=== PATIENT | male | born 2005 | race Caucasian/White ===

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

== ENCOUNTER 2023-01-27 09:41 | Emergency (ER) | payer OTHER, MEDICAID, SELFPAY ==
[2023-01-27 09:57] VITALS: BP 129/81; PULSE 78; RESP 18; TEMP 36.8; O2SAT 98; BMI 21.2
[2023-01-27 10:37] VITALS: BP 145/79; PULSE 61; RESP 16; O2SAT 98
--- NOTE | 2023-01-27 11:05 | ECG_ITS ---
[facility] Test Date: 2023-01-27 Pat Name: Janes Chaudhari Department: Room: Gender: Male [employer]: : 2005 Requested By: Caitlin Jamison Order Number: [id number] Lira MD: Sue Castillo M.D. Measurements Intervals [place] Rate: 58 P: 42 NM: 154 QRS: 32 QRSD: 90 T: 48 QT: 385 QTc: 380 Interpretive Statements SINUS BRADYCARDIA WITH SINUS ARRHYTHMIA No previous ECG available for comparison Electronically Signed On 01-28-2023 6:59:32 CDT by Sue Castillo M.D. [email or web address]
--- NOTE | 2023-01-27 11:06 | CTR_ITS ---
PROCEDURE INFORMATION: Exam: CT Head Without Contrast Exam date and time: 01/27/2023 11:51 AM Age: 17 years old Clinical indication: Syncope and collapse; Additional info: Trauma TECHNIQUE: Imaging protocol: Computed tomography of the head without contrast. Radiation optimization: All CT scans at this facility use at least one of these dose optimization techniques: automated exposure control; mA and/or kV adjustment per patient size (includes targeted exams where dose is matched to clinical indication); or iterative reconstruction. REPORTING DATA: Count of CT and Cardiac NM exams in prior 12 months: This patient has received [address] and 0 known cardiac nuclear medicine studies in the 12 months prior to the current study. COMPARISON: CT head wo con* [id number] 01/14/2020 3:13 PM RADIATION DOSE METRICS: Total DLP (mGy-cm): 1091.68 FINDINGS: Brain: Normal. No hemorrhage. No mass effect or midline shift. Cortical sulci and white matter are unremarkable for age. Cerebral ventricles: Unremarkable for age. Paranasal sinuses: Visualized sinuses are unremarkable. No fluid levels. Mastoid air cells: There is partial obliterat Bones/joints: Unremarkable. No acute fracture. Soft tissues: Unremarkable. CT/CT head wo con* [id number] IMPRESSION: No acute intracranial abnormality.
--- NOTE | 2023-01-27 11:08 | W.ED.SYNCOPE ---
HPI - Syncope General: Chief Complaint: Syncope Stated Complaint: head injury Time Seen by Provider: 01/27/23 09:45 Source: patient Mode of arrival: ambulatory Limitations: no limitations History of Present Illness: Patient is a 17-year-old male who presents to the emergency department complaining of syncope and hematemesis. In regards to his bloody emesis, he states this has intermittently been present since he was a kid . He was seen in our ED in November for a similar complaint of nausea/bloody vomiting and had a negative abdominal CT and labs. As recent as last week, he had an upper endoscopy by Dr. Jenkins that was reportedly unremarkable for any explanations to his reported GI bleeding. Gastric biopsy performed. Reportedly also has further testing scheduled. He states over the past three months he has had syncopal episodes during episodes of vomiting. Never had a syncopal episode while he wasn't vomiting or during exertion. Today during vomiting/syncopal episode he fell and hit his forehead and had little recollection of getting to work this morning and had some blurring of his vision. He denies any significant past medical history. Patient denies abdominal pain. Denies black/tarry stools. He takes Zofran at home for his nausea as well as Pantoprazole. He has never had an EKG or other cardiac work-up. He denies any recreational drug use or alcohol use. He also states he currently has a headache due to hitting his head from the fall. MD complaint: loss of consciousness Onset (ago): hour(s) -: second(s) Prodromal symptoms: nausea/vomiting Witnessed: No Injuries sustained associated with event: head Associated symptoms: Reports headache(s) and nausea; Deny abdominal pain (Mild right upper quadrant), chest pain, fever(s) or lightheadedness Treatments prior to arrival: none Review of Systems Const: Denies: fever(s), chills, body aches, fatigue or malaise Eyes: Denies: change in vision, blurry vision, photophobia, floaters or seeing flashes ENMT: Denies: throat pain or odynophagia Card: Reports: syncope; Denies: chest pain, palpitations, irregular heart rhythm, lightheadedness or dyspnea on exertion Resp: Denies: dyspnea, productive cough or pain on inspiration GI: Reports: nausea, vomiting and hematemesis; Denies: abdominal pain (Mild right upper quadrant), heartburn, diarrhea, constipation, change in bowel habits, hematochezia or melena : Denies: difficulty urinating or dysuria Musc: Denies: neck pain, back pain or joint pain Skin/Breast: Denies: rash Neuro: Reports: headache(s); Denies: dizziness PFSH ED PFSH: Medical History No pertinent family history Surgical History No pertinent past surgical history Physical Exam Const: COMMON NORMALS: no acute distress, average body habitus, patient oriented x3, no limitations, healthy appearing, alert and well nourished GENERAL APPEARANCE: cooperative and comfortable ORIENTATION/CONSCIOUSNESS: Yes awake, Yes oriented to person, Yes oriented to place and Yes oriented to time HENMT: COMMON NORMALS: normocephalic and atraumatic HEAD & SCALP: normal to inspection, normocephalic, atraumatic and other (Small abrasion noted to the forehead); no Mascorro's sign, no laceration and no raccoon eyes Eye: COMMON NORMALS: Equal, round and reactive pupils present, EOMs intact bilaterally, conjunctivae normal, no scleral icterus, no papilledema and normal visual metzger by confrontation CONJUNCTIVA: Yes conjunctivae normal PUPIL: Yes Equal, round and reactive pupils present DIRECT OPHTHALMOSCOPY: Yes no papilledema Neck/C-Spine: COMMON NORMALS: full ROM, no lymphadenopathy, supple and no meningeal signs Chest: COMMONS NORMALS: normal inspection of the chest Resp: COMMON NORMALS: normal respiratory effort and clear to auscultation bilaterally AUSCULTATION: clear to auscultation bilaterally Cardio: COMMON NORMALS: regular rate, regular rhythm, No gallops present (Cardio), No clicks present (Cardio), No murmurs present (Cardio) and No rub (Cardio) RATE: regular rate RHYTHM: regular rhythm GI: COMMON NORMALS: Normal to inspection, nondistended, normoactive bowel sounds present, Soft to palpation, No hepatosplenomegaly present and no masses PALPATION: Yes Soft to palpation, No Tenderness to palpation present (GI), No Guarding due to palpation present (GI), No Rigid due to palpation and Yes No hepatosplenomegaly present : COMMON NORMALS: Yes no CVA tenderness BLADDER/KIDNEY EXAM: Yes no CVA tenderness Back/Pelvis: COMMON NORMALS: no CVA tenderness and thoracic and lumbar spine normal to inspection Extremity: COMMON NORMALS: normal to inspection, full ROM and capillary refill normal GENERAL: Yes normal exam except as noted Neuro: MAE COMA SCALE: document GCS findings [place] coma scale eye opening: Spontaneous [place] coma scale verbal response: Orientated [place] coma scale motor response: Obey commands [place] coma scale total score: 15 COMMON NORMALS: patient oriented x3, CN's II-XII intact bilaterally, moves all extremities, no focal motor deficits and no sensory deficits noted SENSORIUM/ORIENTATION: Yes alert, Yes oriented to person, Yes oriented to place and Yes oriented to time MENINGEAL SIGNS: Yes no meningeal signs SPEECH: speech normal GAIT: Yes Normal gait present MOTOR EXAM: 5/5 motor strength present throughout Skin: COMMON NORMALS: no rashes or lesions noted GENERAL SKIN EXAM: no rashes or lesions noted Course Vital Signs: Vital signs: Vital Signs Temperature 98.2 F 01/27/23 09:57 Pulse Rate 67 01/27/23 11:30 Respiratory Rate 18 01/27/23 11:30 Blood Pressure 126/83 01/27/23 11:30 Pulse Oximetry 100 01/27/23 11:30 Oxygen Delivery Me thod Room Air 01/27/23 11:30 MDM - Syncope Medical Decision Making This patient was seen and evaluated in the emergency department today for chronic hematemesis (years) and syncope while vomiting x 3 months. He notes that his syncopal episodes are associated with episodes of repetitive hematemesis, which was the case this morning. He comments that he has dealt with this since he was a child, and no one has found out what is wrong or what is causing his GI bleeding. His vitals throughout his stay have been within normal limits. An EKG performed showed no signs of abnormalities. Head CT is negative. His labs are also within normal limits, including no signs of acute blood loss anemia. He has had zero episodes of emesis while in the emergency department, though has complained of nausea for which he is given Zofran. I do not have any concern for cardiogenic or neurologic etiologies in regards to his syncope. He had a reportedly negative EGD [address] Jenkins. I feel that he can follow-up with primary care provider to continue work-up, which he agrees with at this time. Lab Data 01/27/23 11:18 01/27/23 11:[address] 01/27/23 11:06 IMPRESSION: No acute intracranial abnormality. Laboratory Results WBC 5.6 10^3/uL (4.5-13.0) 01/27/23 11:18 RBC 5.46 10^6/uL (4.1-5.3) H 01/27/23 11:18 Hgb 14.8 g/dL (11.7-16.6) 01/27/23 11:18 Hct 44.8 % (42.0-52.0) 01/27/23 11:18 MCV 82.1 fl (80-94) 01/27/23 11:18 MCH 27.1 pg (28.0-34.0) L 01/27/23 11:18 MCHC 33.0 g/dL (30.0-36.0) 01/27/23 11:18 RDW 12.5 % (12.1-15.1) 01/27/23 11:18 Plt Count 245 10^3/cmm (130-400) 01/27/23 11:18 MPV 9.4 fL (7.4-10.4) 01/27/23 11:18 Neut % (Auto) 52.2 % 01/27/23 11:18 Lymph % (Auto) 38.7 % 01/27/23 11:18 [place] % (Auto) 7.3 % 01/27/23 11:18 Eos % (Auto) 0.9 % 01/27/23 11:18 Baso % (Auto) 0.5 % 01/27/23 11:18 Neut # (Auto) 2.93 10^3/uL (1.8-8.0) 01/27/23 11:18 Lymph # (Auto) 2.2 10^3/uL (1.5-6.5) 01/27/23 11:18 [place] # (Auto) 0.4 10^3/uL (0.2-0.9) 01/27/23 11:18 Eos # (Auto) 0.1 10^3/uL (0.0-0.8) 01/27/23 11:18 Baso # (Auto) 0.0 10^3/uL (0.0-0.1) 01/27/23 11:18 Nucleated RBC % (auto) 0 % 01/27/23 11:18 Nucleated RBCs # 0.0 /100WBC 01/27/23 11:18 Sodium 139 mmol/L (136-145) 01/27/23 11:18 Potassium 3.8 mmol/L (3.5-5.1) 01/27/23 11:18 Chloride 104 mmol/L (98-107) 01/27/23 11:18 Carbon Dioxide 25 mmol/L (22-29) 01/27/23 11:18 Anion Gap 13.8 (5-19) 01/27/23 11:18 BUN 9 mg/dL (6-20) 01/27/23 11:18 Creatinine 0.7 mg/dL (0.7-1.2) 01/27/23 11:18 GFR Calculation 145.3 mL/min (90-130) H 01/27/23 11:18 Glucose 75 mg/dL (65-115) 01/27/23 11:18 Calculated Osmolality 285 mOsm/kg (285-295) 01/27/23 11:18 Calcium 9.1 mg/dL (8.5-10.5) 01/27/23 11:18 Total Bilirubin 0.5 mg/dL (0.15-1.2) 01/27/23 11:18 AST 16 U/L (0-40) 01/27/23 11:18 ALT 15 U/L (0-41) 01/27/23 11:18 Alkaline Phosphatase 85 U/L (40-130) 01/27/23 11:18 Total Protein 7.4 g/dL (6.6-8.7) 01/27/23 11:18 Albumin 4.6 g/dL (3.5-5.2) 01/27/23 11:18 Globulin 2.8 g/dL (1.3-4.6) 01/27/23 11:18 Lipase 28 U/L (13-60) 01/27/23 11:18 Urine Color Yellow (Yellow) 01/27/23 11:24 Urine Appearance Clear (CLEAR) 01/27/23 11:24 Urine pH 6 (5-7) 01/27/23 11:24 Ur Specific [place] 1.020 (1.005-1.030) 01/27/23 11:24 Urine Protein Neg (Negative) 01/27/23 11:24 Urine Glucose (UA) Norm (Normal) 01/27/23 11:24 Urine Ketones Negative (Negative) 01/27/23 11:24 Urine Blood Neg (Negative) 01/27/23 11:24 Urine Nitrate Negative (Negative) 01/27/23 11:24 Urine Bilirubin Neg (Negative) 01/27/23 11:24 Urine Urobilinogen Norm mg/dL (Negative) 01/27/23 11:24 Ur Leukocyte Esterase Negative (Negative) 01/27/23 11:24 EKG Data EKG 1: EKG interpretation date: 01/27/23 EKG interpretation time: 11:15 Prior EKG tracings: available for review Interpretation: 1115: Sinus bradycardia. Rate 58. Normal axis. Normal intervals. No acute St segment changes. Baseline artifact. No previous for comparison. Discharge Plan Discharge Patient Disposition: Home Clinical Impression: Vasovagal syncope, Hematemesis of unknown etiology Condition: Stable Prescriptions: No Action pantoprazole 40 mg tablet,delayed release (DR/EC) 40 mg PO BID ondansetron 4 mg tablet,disintegrating 4 mg PO Q8H PRN (Reason: nausea and vomiting) Qty: 20 0RF Discharge Orders: Discharge ED (Routine); Ordered 01/27/23 Ordered By: Caitlin Jamison Referrals: Jackelyn Bah FNP [Primary Care Provider] - Activity Restrictions/Additional Instructions: Continue current plan with your primary care provider and Dr. Jenkins for further evaluation of your symptoms. You may return to the emergency department for severe abdominal pain, worsening vomiting, lightheadedness/dizziness/passing out episodes even when you are not vomiting, chest pain, generally feeling worse or unwell, or any other concerns you may have. Stand Alone Forms: Work/School Release Coding Level of Care Code ED Judicial Administrative Assistant for Faith Flores
[2023-01-27 11:25] LABS: Add Urine Microscopic? NO; Charge for UA Resulting for Rev
[2023-01-27 11:27] VITALS: BP 126/83; BP 129/78; BP 134/74; PULSE 53; PULSE 62; PULSE 67
[2023-01-27 11:28] LABS: Bilirubin Urine Neg (Negative); Blood Urine Neg (Negative); Glucose Urine UA Norm (Normal); Ketones Urine Negative (Negative); Leukocyte Esterase Urine Negative (Negative); Nitrate Urine Negative (Negative); Protein Urine Neg (Negative); Urine Appearance Clear (CLEAR); Urine Color Yellow (Yellow); Urobilinogen Urine Norm (Negative); pH Urine 6 (5-7)
[2023-01-27 11:29] LABS: Basophils % 0.5 %; Eosinophils # 0.1 10^3/uL (0.0-0.8); Eosinophils % 0.9 %; Hematocrit 44.8 % (42.0-52.0); Hemoglobin 14.8 g/dL (11.7-16.6); Lymphocytes # 2.2 10^3/uL (1.5-6.5); Lymphocytes % 38.7 %; Mean Corpuscular Hemoglobin 27.1 pg (28.0-34.0); Mean Corpuscular Volume 82.1 fl (80-94); Mean Platelet Volume 9.4 fL (7.4-10.4); Monocytes # 0.4 10^3/uL (0.2-0.9); Monocytes % 7.3 %; Neutrophils # 2.93 10^3/uL (1.8-8.0); Neutrophils % 52.2 %; Nucleated Red Blood Cells % 0 %; Platelet Count 245 10^3/cmm (130-400); Red Blood Count 5.46 10^6/uL (4.1-5.3); Red Cell Distribution Width 12.5 % (12.1-15.1); White Blood Count 5.6 10^3/uL (4.5-13.0)
[2023-01-27 11:30] VITALS: BP 126/83; PULSE 67; RESP 18; O2SAT 100
[2023-01-27] MEDS: ondansetron 2 mg/ML SDV 2 mL 4 MG IVP (11:30)
[2023-01-27] MEDS: sodium chloride 0.9% 1,000 ML 999 ML IV (11:31)
[2023-01-27 11:46] LABS: Alanine Aminotransferase 15 U/L (0-41); Albumin Level 4.6 g/dL (3.5-5.2); Alkaline Phosphatase 85 U/L (40-130); Anion Gap 13.8 (5-19); Aspartate Amino Transferase 16 U/L (0-40); Blood Urea Nitrogen 9 mg/dL (6-20); Calcium 9.1 mg/dL (8.5-10.5); Carbon Dioxide 25 mmol/L (22-29); Chloride 104 mmol/L (98-107); Globulin 2.8 g/dL (1.3-4.6); Glomerular Filtration Rate 145.3 mL/min (90-130); Glucose 75 mg/dL (65-115); Lipase 28 U/L (13-60); Osmolality Calculated 285 mOsm/kg (285-295); Potassium 3.8 mmol/L (3.5-5.1); Sodium 139 mmol/L (136-145); Total Bilirubin 0.5 mg/dL (0.15-1.2); Total Protein 7.4 g/dL (6.6-8.7)
== END 2023-01-27 13:06 | disposition home or self-care (01) ==
PROVIDERS: Emergency Provider Physician Assistant; PCP Nurse Practitioner Family
DX: R55 Syncope and collapse (principal); K92.0 Hematemesis
CPT/HCPCS: 36415; 70450; 80053; 81003; 83690; 85025; 93005; 96374; 99285; J2405; J7030

== ENCOUNTER 2023-02-07 10:38 | Outpatient (CLI) | payer OTHER, MEDICAID, SELFPAY ==
--- NOTE | 2023-02-07 10:48 | FL_ITS ---
WS: [id number] Exam: [place] upper GI series [id number] Date/Time of Exam: 02/07/2023 11:06 AM Reason For Exam: GERD ESOPHAGITIS Deglutition was normal. The esophagus is smooth in contour. No esophageal stricture or mass. No hiata l hernia or gastroesophageal reflux. There is prominent gastric mucosa suggesting gastritis. No sign of gastric mass or ulceration. There was pylorospasm and delayed gastric emptying. The duodenal bulb is smooth in contour. No duodenal ulcer was noted. Barium spills freely into the proximal small bowel . IMPRESSION: 1. Findings suggest gastritis with some pylorospasm and delayed gastric emptying. 2. No indication of gastric or duodenal ulcer. No reflux identified during fluoroscopy.
== END 2023-02-07 10:39 | disposition home or self-care (01) ==
LOC: RAD 10:44
PROVIDERS: PCP Nurse Practitioner Family; Visit Provider Electrodiagnostic Medicine
DX: K21.00 Gastro-esophageal reflux disease with esophagitis, without bleeding (principal)
CPT/HCPCS: 74240

== ENCOUNTER 2023-05-08 12:34 | Emergency (ER) | payer OTHER, MEDICAID, SELFPAY ==
[2023-05-08 12:38] VITALS: BP 122/79; PULSE 75; RESP 16; TEMP 36.6; O2SAT 100; BMI 22.1
--- NOTE | 2023-05-08 13:39 | ED_ITS ---
HPI - Abdominal Pain 2 General: Chief Complaint: Abdominal Pain Stated Complaint: abd pain Time Seen by Provider: 05/08/23 13:35 Source: patient Mode of arrival: ambulatory History of Present Illness: 17-year-old male presents emergency room complaining epigastric pain radiating to his chest worse overnight he has had this intermittently for the last several months. He has an appointment in 2 months with gastroenterology. He is on pantoprazole 40 mg twice daily despite this he still has difficulty. Denies any mops his hematemesis cough cramps no dysuria urgency or frequency MD elicited complaint: abdominal pain Pertinent past history: none Onset (ago): minute(s) Quality: cramping Associated Symptoms: Denies anorexia, belching, bloating, change in bowel habits, change in stool character, chills, coffee ground emesis, constipation, GI cramping, diarrhea, dyspepsia, dysuria, excessive flatus, fever(s), heartburn, hematochezia, hematuria, hematemesis, fecal incontinence, loose stools, melena, nausea, poor appetite, syncope and vomiting Review of Systems 2 Const: Denies: fever(s) or chills Card: Denies: syncope Resp: Denies: dyspnea GI: Denies: nausea, vomiting, hematemesis, coffee ground emesis, heartburn, diarrhea, constipation, bloating, GI cramping, belching, excessive flatus, fecal incontinence, change in bowel habits, change in stool character, hematochezia or melena : Denies: dysuria, urinary frequency, urinary urgency or hematuria Musc: Denies: neck pain or back pain Skin/Breast: Denies: rash PFS ED 2 PFSH: Medical History No pertinent family history Surgical History No pertinent past surgical history Physical Exam 2 Const: GENERAL APPEARANCE: cooperative and comfortable O RIENTATION/CONSCIOUSNESS: Yes awake, Yes oriented to person, Yes oriented to place and Yes oriented to time HENMT: COMMON NORMALS: normocephalic, atraumatic and hearing grossly normal bilaterally HEAD & SCALP: normocephalic and atraumatic Resp: COMMON NORMALS: normal respiratory effort, No retractions, No use of accessory muscles and clear to auscultation bilaterally AUSCULTATION: clear to auscultation bilaterally Cardio: COMMON NORMALS: regular rate, regular rhythm and No murmurs present (Cardio) RATE: regular rate RHYTHM: regular rhythm GI: COMMON NORMALS: No hepatosplenomegaly present AUSCULTATION: Yes normoactive bowel sounds PALPATION: Yes Tenderness to palpation present (GI) (Epigastric), No Guarding due to palpation present (GI) and Yes No hepatosplenomegaly present Extremity: COMMON NORMALS: normal to inspection, capillary refill normal, no clubbing, cyanosis or edema, no calf tenderness and no pedal edema Neuro: SENSORIUM/ORIENTATION: Yes oriented to person, Yes oriented to place and Yes oriented to time Skin: COMMON NORMALS: no rashes or lesions noted GENERAL SKIN EXAM: no rashes or lesions noted Course 2 Vital Signs: Vital signs: Vital Signs Temperature 97.8 F 05/08/23 12:38 Pulse Rate 73 05/08/23 15:45 Respiratory Rate 17 05/08/23 14:00 Blood Pressure 133/79 05/08/23 15:45 Pulse Oximetry 99 05/08/23 15:45 Oxygen Delivery Me thod Room Air 05/08/23 14:00 MDM - Abdominal Pain Medical Decision Making Continue pantoprazole avoid specific foods patient given instructions on reflux diet. Add Carafate to use as needed was given a GI cocktail here and had significant improvement Medical Records I reviewed the patient's medical records. Lab Data I reviewed the patient's lab results. 05/08/23 13:31 05/08/23 13:31 Labs/Radiology: Laboratory Results WBC 7.65 10^3/uL (4.5-13.0) 05/08/23 13:31 RBC 5.67 10^6/uL (3.85-5.65) H 05/08/23 13:31 Hgb 15.60 g/dL (13.2-15.6) 05/08/23 13:31 Hct 46.7 % (37-53) 05/08/23 13:31 MCV 82.4 fl (82-101) 05/08/23 13:31 MCH 27.5 pg (27-33) 05/08/23 13:31 MCHC 33.4 g/dL (30-55) 05/08/23 13:31 RDW 12.7 % (12.1-15.1) 05/08/23 13:31 Plt Count 222 10^3/cmm (157-399) 05/08/23 13:31 MPV 9.4 fL (7.4-10.4) 05/08/23 13:31 Neut % (Auto) 62.1 % 05/08/23 13:31 Lymph % (Auto) 27.8 % 05/08/23 13:31 [place] % (Auto) 8.6 % 05/08/23 13:31 Eos % (Auto) 0.8 % 05/08/23 13:31 Baso % (Auto) 0.4 % 05/08/23 13:31 Neut # (Auto) 4.75 10^3/uL (1.8-8.0) 05/08/23 13:31 Lymph # (Auto) 2.1 10^3/uL (1.5-6.5) 05/08/23 13:31 [place] # (Auto) 0.7 10^3/uL (0.2-0.9) 05/08/23 13:31 Eos # (Auto) 0.1 10^3/uL (0.0-0.8) 05/08/23 13:31 Baso # (Auto) 0.0 10^3/uL (0.0-0.1) 05/08/23 13:31 Nucleated RBC % (auto) 0 % 05/08/23 13:31 Nucleated RBCs # 0.0 /100WBC 05/08/23 13:31 Sodium 139 mmol/L (136-145) 05/08/23 13:31 Potassium 4.3 mmol/L (3.5-5.1) 05/08/23 13:31 Chloride 102 mmol/L (98-107) 05/08/23 13:31 Carbon Dioxide 28 mmol/L (22-29) 05/08/23 13:31 Anion Gap 13.3 (5-19) 05/08/23 13:31 BUN 11 mg/dL (6-20) 05/08/23 13:31 Creatinine 0.7 mg/dL (0.7-1.2) 05/08/23 13:31 GFR Calculation 145.3 mL/min (90-130) H 05/08/23 13:31 Glucose 84 mg/dL (65-115) 05/08/23 13:31 Calculated Osmolality 287 mOsm/kg (285-295) 05/08/23 13:31 Calcium 9.8 mg/dL (8.5-10.5) 05/08/23 13:31 Magnesium 1.9 mg/dL (1.7-2.2) 05/08/23 13:31 Total Bilirubin 0.4 mg/dL (0.15-1.2) 05/08/23 13:31 AST 22 U/L (0-40) 05/08/23 13:31 ALT 27 U/L (0-41) 05/08/23 13:31 Alkaline Phosphatase 113 U/L (40-130) 05/08/23 13:31 Total Protein 8.0 g/dL (6.6-8.7) 05/08/23 13:31 Albumin 4.8 g/dL (3.5-5.2) 05/08/23 13:31 Globulin 3.2 g/dL (1.3-4.6) 05/08/23 13:31 Lipase 36 U/L (13-60) 05/08/23 13:31 Urine Color Light yellow (Yellow) 05/08/23 13:30 Urine Appearance Clear (CLEAR) 05/08/23 13:30 Urine pH 6 (5-7) 05/08/23 13:30 Ur Specific [place] 1.010 (1.005-1.030) 05/08/23 13:30 Urine Protein Neg (Negative) 05/08/23 13:30 Urine Glucose (UA) Norm (Normal) 05/08/23 13:30 Urine Ketones Negative (Negative) 05/08/23 13:30 Urine Blood Neg (Negative) 05/08/23 13:30 Urine Nitrate Negative (Negative) 05/08/23 13:30 Urine Bilirubin Neg (Negative) 05/08/23 13:30 Urine Urobilinogen Norm mg/dL (Negative) 05/08/23 13:30 Ur Leukocyte Esterase Negative (Negative) 05/08/23 13:30 No radiology studies performed this visit Discharge Plan Discharge Patient Disposition: Home Clinical Impression: GERD (gastroesophageal reflux disease) Condition: Stable Prescriptions: New Carafate 1 gram tablet 1 g PO Q6H 28 Days Qty: 112 0RF No Action pantoprazole 40 mg tablet,delayed release (DR/EC) 40 mg PO BID ondansetron 4 mg tablet,disintegrating 4 mg PO Q8H PRN (Reason: nausea and vomiting) Qty: 20 0RF Discharge Orders: Discharge ED (Routine); Ordered 05/08/23 Ordered By: Shaun Cerda Referrals: Jackelyn Bah FNP [Primary Care Provider] - Discharge Diet: As Directed Patient Instructions: Diet for Stomach Ulcers and Gastritis (ED), GERD (Gastroesophageal Reflux Disease) (ED), Opioid Safety, Pain Management Stand Alone Forms: Work/School Release Coding Level of Care Code ED Financial Analyst for Faith Flores
[2023-05-08 13:40] LABS: Basophils % 0.4 %; Eosinophils # 0.1 10^3/uL (0.0-0.8); Eosinophils % 0.8 %; Hematocrit 46.7 % (37-53); Lymphocytes # 2.1 10^3/uL (1.5-6.5); Lymphocytes % 27.8 %; Mean Corpuscular HGB Conc 33.4 g/dL (30-55); Mean Corpuscular Hemoglobin 27.5 pg (27-33); Mean Corpuscular Volume 82.4 fl (82-101); Mean Platelet Volume 9.4 fL (7.4-10.4); Monocytes # 0.7 10^3/uL (0.2-0.9); Monocytes % 8.6 %; Neutrophils # 4.75 10^3/uL (1.8-8.0); Neutrophils % 62.1 %; Nucleated Red Blood Cells % 0 %; Platelet Count 222 10^3/cmm (157-399); Red Blood Count 5.67 10^6/uL (3.85-5.65); Red Cell Distribution Width 12.7 % (12.1-15.1); White Blood Count 7.65 10^3/uL (4.5-13.0)
[2023-05-08 13:57] LABS: Alanine Aminotransferase 27 U/L (0-41); Albumin Level 4.8 g/dL (3.5-5.2); Alkaline Phosphatase 113 U/L (40-130); Anion Gap 13.3 (5-19); Aspartate Amino Transferase 22 U/L (0-40); Blood Urea Nitrogen 11 mg/dL (6-20); Calcium 9.8 mg/dL (8.5-10.5); Carbon Dioxide 28 mmol/L (22-29); Chloride 102 mmol/L (98-107); Globulin 3.2 g/dL (1.3-4.6); Glomerular Filtration Rate 145.3 mL/min (90-130); Glucose 84 mg/dL (65-115); Lipase 36 U/L (13-60); Magnesium 1.9 mg/dL (1.7-2.2); Osmolality Calculated 287 mOsm/kg (285-295); Potassium 4.3 mmol/L (3.5-5.1); Sodium 139 mmol/L (136-145); Total Bilirubin 0.4 mg/dL (0.15-1.2)
[2023-05-08 14:00] VITALS: BP 134/68; PULSE 52; RESP 17; O2SAT 98
[2023-05-08 14:03] LABS: Add Urine Microscopic? NO; Charge for UA Resulting for Rev
[2023-05-08 14:08] LABS: Bilirubin Urine Neg (Negative); Blood Urine Neg (Negative); Glucose Urine UA Norm (Normal); Ketones Urine Negative (Negative); Leukocyte Esterase Urine Negative (Negative); Nitrate Urine Negative (Negative); Protein Urine Neg (Negative); Urine Appearance Clear (CLEAR); Urine Color Light yellow (Yellow); Urobilinogen Urine Norm (Negative); pH Urine 6 (5-7)
[2023-05-08 14:42] VITALS: BP 134/68; PULSE 83; O2SAT 100
[2023-05-08] MEDS: lidocaine 2% viscous 15 ML, aluminum-mag hydrox-simethicon 30 ML, sucralfate oral liq 1 GM PO (15:16)
[2023-05-08 15:45] VITALS: BP 133/79; PULSE 73; O2SAT 99
== END 2023-05-08 15:52 | disposition home or self-care (01) ==
PROVIDERS: Emergency Medicine; Emergency Provider Family Medicine; PCP Nurse Practitioner Family
DX: K21.9 Gastro-esophageal reflux disease without esophagitis (principal)
CPT/HCPCS: 36415; 80053; 81003; 83690; 83735; 85025; 99283